=== PATIENT | female | born 1940 | race Caucasian/White ===

== ENCOUNTER 2016-08-28 17:15 | Emergency (ER) | payer MEDICARE ==
[~2016-08-28 17:15] MED LIST: Sodium Chloride Irrig Solution 250 ML BOT ONE
== END 2016-08-28 18:42 | disposition home or self-care (01) ==
LOC: MADERS 17:15 → EDBD 17:15 → MADERS 18:42
DX: K94.23 Gastrostomy malfunction (principal); C06.9 Malignant neoplasm of mouth, unspecified
CPT/HCPCS: 99282